=== PATIENT | female | born 1985 | race African-American/Black ===

== ENCOUNTER 2018-12-20 03:37 | Inpatient (IN) | payer MEDICAID ==
[~2018-12-20] VITALS: Ht 154.9 cm; Wt 65.8 kg
[2018-12-20] MEDS ORDERED: LIDOCAINE 2%HCL (LOCAL ANESTH.) INJ 20ML MDV ONE (03:54)
[2018-12-20] MEDS ORDERED: DERMOPLAST 60ML BOTTLE TOP ONE (03:54)
[2018-12-20] MEDS ORDERED: OXYTOCIN 10UNIT/ML 1ML VIAL ONE (03:54)
[2018-12-20] MEDS ORDERED: WITCH HAZEL-GLYCERIN PAD TOP ONE (03:55)
[2018-12-20] MEDS ORDERED: LACT. RINGERS/OXYTOCIN 20UNITS 1,000 ML IV ONE (03:55)
[2018-12-20] MEDS ORDERED: PHISODERM TOP SOLN 240ML BTL TOP ONE (03:55)
[2018-12-20] MEDS ORDERED: LACT. RINGERS/OXYTOCIN 20UNITS 1,000 ML IV SCH (03:56)
[2018-12-20] MEDS ORDERED: PHISODERM TOP SOLN 240ML BTL TOP PRN (04:00)
[2018-12-20] MEDS ORDERED: WITCH HAZEL-GLYCERIN PAD TOP PRN (04:00)
[2018-12-20] MEDS ORDERED: DERMOPLAST 60ML BOTTLE TOP PRN (04:00)
[2018-12-20] MEDS ORDERED: CARBOPROST TROMETHAMINE 250 MCG/1ML VIAL IM PRN (04:00)
[2018-12-20] MEDS ORDERED: METHYLERGONOVINE MALEATE 0.2 MG/ML AMP IM PRN (04:00)
[2018-12-20] MEDS ORDERED: LIDOCAINE 2%HCL (LOCAL ANESTH.) INJ 20ML MDV ID ONE (04:00)
[2018-12-20] MEDS ORDERED: PENICILLIN G POT 5MIL/D5 50ML 50 ML IV ONE (04:00)
[2018-12-20 05:00] LABS: Basophils # (auto) 0.1 uL; Eosinophils # (auto) 0.1 uL; Eosinophils % (auto) 0.3 % (0.0-7.0); Hemoglobin 10.1 g/dL (12.2-16.2); Lymphocytes # (auto) 1.9 uL; Red Cell Distribution Width 16.1 % (11.8-14.3)
[2018-12-20 05:02] LABS: Basophils % (auto) 0.4 % (0.0-2.0); Hematocrit 29.4 % (36.0-46.0); Lymphocytes % (auto) 11.7 % (10.0-50.0); Mean Corpuscular Hemoglobin 25.5 pg (28.0-32.0); Mean Corpuscular Hgb Conc. 34.3 g/dL (32.0-36.0); Mean Corpuscular Volume 74.4 fL (80.0-100.0); Monocytes # (auto) 0.7 uL; Monocytes % (auto) 4.6 % (0.0-12.0); Neutrophils # (auto) 13.3 uL; Platelet Count (auto) 219 10^3/uL (140-450); Red Blood Cells 3.95 10^6/uL (4.0-5.20)
[2018-12-20 05:19] LABS: INR < 0.93 (0.9-1.15); Partial Thromboplastin Time 27.9 sec (23.64-32.05)
[2018-12-20 05:24] LABS: Urine Bacteria MOD /hpf (None Seen); Urine Blood 3+ /uL (Negative); Urine Mucus FEW (None Seen); Urine Specific Gravity 1.019 (1.001-1.035); Urine WBC 108 /hpf (0 - 5); Urine WBC Clumps PRESENT /hpf (None Seen)
[2018-12-20 05:25] LABS: Alcohol, Urine < 3.0 mg/dL (0-5); Amphetamine Screen, Urine NEGATIVE (NEGATIVE); Barbiturate Scree,Urine NEGATIVE (NEGATIVE); Benzodiazephine Screen, Urine NEGATIVE (NEGATIVE); Cannabinoid Screen, Urine NEGATIVE (NEGATIVE); Cocaine Screen, Urine NEGATIVE (NEGATIVE); Opiate Scree,Urine NEGATIVE (NEGATIVE); Phencyclidine Screen, Urine NEGATIVE (NEGATIVE)
[2018-12-20 05:30] LABS: Potassium 3.9 mmol/L (3.5-5.1)
[2018-12-20 05:48] LABS: Albumin 2.2 g/dL (3.4-5.0); BUN/Creatinine Ratio 15.9; Bilirubin, Total 0.2 mg/dL (0.2-1.0); Total Protein 6.5 g/dL (6.4-8.2)
--- NOTE | 2018-12-20 06:45 | NUR ---
Teaching: Reviewed information in New Beginnings booklet with patient. Discussed benefits of and risks associated with not . Discussed different positions, proper latch, feeding cues, and baby-led . Provided information of medication side effects related to . All questions and concerns addressed at this time. Patient verbalized understanding of information.
[2018-12-20] MEDS ORDERED: PENICILLIN G POTASSIUM 2,500,000 UNITS in D5W 5% 50 ML IV SCH (08:00)
[2018-12-20] MEDS: IBUPROFEN 600 MG TAB PO PRN ×4 (08:14→23:14)
--- NOTE | 2018-12-20 08:15 | NUR ---
Call placed to line assembly utility worker Tammy awaiting call back
--- NOTE | 2018-12-20 08:25 | NUR ---
Ambulation: Patient OOB with standby assistance by RN. Patient ambulated to bathroom with steady gait. Patient able to void without difficulty 700 ml. [facility] teaching provided with returned demonstration by patient. Clean gown provided and bed linen changed. Patient ambulated back to bed with steady gait and no distress noted.
--- NOTE | 2018-12-20 08:53 | NUR ---
parks worker Tammy returned call Mother SBAR given including G 10 P7 38.3, MOB and FOB moving to [facility] address given, SS # Baby girls information. MOB does not have custody of any of the other 7 children. Per Tammy she will contact CPS and let us know if there will be a hold on baby.
--- NOTE | 2018-12-20 10:00 | NUR ---
Kayla director of casework services called unit. Stated she started a CPS case ( ) regarding patient not having custody of 7 other children. Patient stated 6 of the children are living with their father and one is in foster care. Kayla spoke with Lissa (CPS)/ case #[id number]. workers' compensation mediator stated Lissa will look into previous cases and get back to her.
--- NOTE | 2018-12-20 10:06 | NUR ---
D/C Planning Per SS consult for decreased care, does not have custody of 7 other children and is planning on moving to [place]. Spoke to EDMOND Cali and Ashley regarding Pt concerns. Contact CPS ph:( [phone]) spoke to Lissa. Per Lissa from CPS she will be having her labor supervisor review the case and did not say to put a hold on the baby unless further noticed. Case number provided from Lissa ([facility]) is [id number]. Informed EDMOND Esparza.
--- NOTE | 2018-12-20 10:13 | NUR ---
SBAR given to Santos Jackson RN.
--- NOTE | 2018-12-20 10:13 | NUR ---
Report received from Dayron Faye RN on stable pt. Assumed care.
--- NOTE | 2018-12-20 10:30 | NUR ---
Informed patient and FOB of CPS regarding history of patient not having custody of other 7 children. Verbalized understanding. All questions and concerns addressed.
[2018-12-20 11:00] VITALS: BP 128/60
--- NOTE | 2018-12-20 14:15 | NUR ---
Report given to Dayron Pendleton RN on stable pt. Relinquished care
[2018-12-20 15:00] VITALS: BP 115/53
[2018-12-20 19:00] VITALS: BP 114/70
[2018-12-20] MEDS: LACTATED RINGER'S 1,000 ML IV SCH (22:00)
[2018-12-20 23:23] VITALS: BP 122/76
--- NOTE | 2018-12-21 00:30 | NUR ---
Bottle-feeding Education: Patient encouraged to breastfeed. Benefits of and the risk of providing formula to was discussed. Patient verbalized understanding of the benefits and is aware of risk and insists on bottle-feeding. Formula provided and instruction on formula preperation from the New Beginning booklet reviewed with patient.
[2018-12-21 03:00] VITALS: BP 119/65
[2018-12-21] MEDS: LACTATED RINGER'S 1,000 ML IV SCH (06:00)
[2018-12-21 06:54] VITALS: BP 109/62
[2018-12-21] MEDS: IBUPROFEN 600 MG TAB PO PRN ×3 (07:14→18:06)
[2018-12-21 11:00] VITALS: BP 118/75
--- NOTE | 2018-12-21 13:30 | NUR ---
Report given to A Sinan RN who will assume patient care.
--- NOTE | 2018-12-21 13:30 | NUR ---
REPORT RECEIVED FROM Dayron WAN RN ON STABLE PATIENT, ASSUMING CARE.
[2018-12-21 15:00] VITALS: BP 118/54
[2018-12-21] MEDS ORDERED: PREN-96 PO (18:09)
[2018-12-21 19:15] VITALS: BP 119/71
--- NOTE | 2018-12-21 22:10 | NUR ---
IV discontinued to left forearm. Catheter intact and dressing applied.
[2018-12-21 23:00] VITALS: BP 125/67
[2018-12-22 03:00] VITALS: BP 124/76
[2018-12-22] MEDS: IBUPROFEN 600 MG TAB PO PRN (05:59)
[2018-12-22 06:06] LABS: Rubella Antibodies, IgG <0.90 index (Immune >0.99)
[2018-12-22 06:50] VITALS: BP 121/61
--- NOTE | 2018-12-22 06:53 | NUR ---
PT NOTIFIED THAT SHE IS RUBELLA NON-IMMUNE. PT GIVEN MMR VACCINATION EDUCATION SHEET AND PT DECLINED MMR VACCINE. WILL CONTINUE TO MONITOR.
--- NOTE | 2018-12-22 07:12 | NUR ---
DR. JIMENEZ AT PT BEDSIDE, STATUS UPDATE GIVEN, PT IS RUBELLA NON-IMMUNE, DECLINED MMR VACCINE, STILL PENDING RPR RESULTS. PER DR. JIMENEZ, NOTIFY WITH RESULTS. READ BACK AND VERIFIED ORDERS. WILL CARRY OUT.
[2018-12-22] MEDS ORDERED: OXYTOCIN 10UNIT/ML 1ML VIAL ONE (07:29)
[2018-12-22] MEDS ORDERED: METHYLERGONOVINE MALEATE 0.2 MG/ML AMP IM ONE (07:30)
[2018-12-22] MEDS ORDERED: LACT. RINGERS/OXYTOCIN 20UNITS 0 ML IV ONE (07:38)
[2018-12-22 11:10] VITALS: BP 105/58
--- NOTE | 2018-12-22 12:22 | NUR ---
[facility] CFS, they state they do not have an open case on her and no case # filed. Called and left msg for Custodial Services Manager.
--- NOTE | 2018-12-22 12:29 | NUR ---
Social Service, Aydee returned call. She spoke with Tammy, she will fax report form and call back with follow-up on report in a couple of hours.
--- NOTE | 2018-12-22 12:56 | NUR ---
JESSICA FROM CPS CALLED BACK AND STATED THERE IS NO HOLD ON , CLEARED BY CPS. WILL NOTIFY DR. BROCK.
--- NOTE | 2018-12-22 13:06 | NUR ---
CALLED [address] AT REGARDING PENDING RPR LAB, SPOKE WITH OLIVE. OLIVE STATED SHE WILL FAX OVER MOB AND INFANTS RPR RESULTS, AWAITING FAX.
--- NOTE | 2018-12-22 13:51 | NUR ---
CALLED LAB [facility] AGAIN AND SPOKE WITH OLIVE REGARDING NOT RECEIVED FAX RPR RESULTS. OLIVE STATED SHE IS FAXING IT AGAIN NOW.
--- NOTE | 2018-12-22 13:52 | NUR ---
RECEIVED FAX FOR RPR, PLACED IN PATIENTS CHART, WILL NOTIFY DR. JIMENEZ.
--- NOTE | 2018-12-22 14:00 | NUR ---
DR. JIMENEZ ON UNIT, NOTIFIED OF PTS REACTIVE RPR, RPR QUANTITATIVE 1:32. ORDERS RECEIVED FROM DR. JIMENEZ FOR PENICILLIN G BENZATHINE 2.4 MILLION UNITS IM QWEEKLY X3 WEEKS, FIRST DOSE TO TO GIVEN NOW. PER DR. JIMENEZ PT TO DISCHARGE HOME AFTER ANTIBIOTIC AND PT TO RETURN TO OB CLINIC WITH DR. KING ON 12/29/18 FOR FOLLOW UP APPOINTMENT AND SECOND DOSE OF PENICILLIN ANTIBIOTIC AND THEN ON 01/05/19 FOR THIRD DOSE OF PENICILLIN ANTIBIOTIC. READ BACK AND VERIFIED ORDERS. WILL CARRY OUT.
--- NOTE | 2018-12-22 14:05 | NUR ---
DR. JIMENEZ ALSO NOTIFIED OF ALL PATIENTS LABS FROM [facility].
--- NOTE | 2018-12-22 14:42 | NUR ---
INFORMED DR. KING THAT THE HIV ENVELOPE ARRIVES TO THE UNIT, DR. KING GRANTED PERMISSION TO OPEN CONFIDENTIAL ENVELOPE FOR RESULTS. DR. KING NOTIFIED PT IS HIV NEGATIVE. PER DR. KING RESUME WITH CURRENT PLAN OF CARE AND DISCHARGE PT HOME. READ BACK AND VERIFIED ORDERS. WILL CARRY OUT.
[2018-12-22 15:00] VITALS: BP 135/80
[2018-12-22] MEDS ORDERED: PENICILLIN G BENZ 1200000 UNITS/2 ML SYRG IM SCH (15:00)
--- NOTE | 2018-12-22 15:09 | NUR ---
NOTIFIED PT ABOUT REACTIVE RPR RESULTS AND DR. JIMENEZ ORDER FOR PENICILLIN ANTIBIOTIC TREATMENT. ALL PTS QUESTIONS AND CONCERNS ADDRESSED AT THIS TIME. PT VERBALIZES UNDERSTANDING AND AGREES TO ANTIBIOTIC TREATMENT AND TO FOLLOW THE TREATMENT REGIMENT. WILL CONTINUE TO MONITOR.
--- NOTE | 2018-12-22 17:00 | NUR ---
Discharge: Discharge instructions given as ordered. Pt encouraged to follow up with [facility] C[facility] TECHNICIAN as instructed. All questions and concerns addressed. Patient verbalized understanding. Medication reconciliation completed and copy given to patient. All required/requested vaccines given and copies of vaccinations given to patient. Patient encouraged to prepare to depart unit.
--- NOTE | 2018-12-22 18:37 | NUR ---
IV removal IV DC'd with clean sterile technique, catheter fully intact. Pressure dressing applied to site. Patient tolerated well. Addendum: 12/22/18 at 1853 by Odette Menon RN wrong patient, disregard note
--- NOTE | 2018-12-22 18:45 | NUR ---
Discharge: Pt given all discharge instructions and paperwork. No distress noted and no adverse changes in status since initial assessment. Pt staying in room 106 until [facility] team arrives to give patient baby band.
--- NOTE | 2018-12-22 20:00 | NUR ---
Patient leaves birthplace via ambulation with FOB and belongings in hand. No distress noted.
== END 2018-12-22 18:45 | disposition home or self-care (01) | DRG 560 ==
LOC: LDRP 03:37 → OBSVTOIN 03:37 → LDRP 04:33
PROVIDERS: ADMIT Specialist; ATTEND Specialist
PROC: 10E0XZZ Delivery of Products of Conception, External Approach (ICD-10-PCS; principal; 2018-12-20)
DX: O98.32 Other infections with a predominantly sexual mode of transmission complicating childbirth (principal); O77.0 Labor and delivery complicated by meconium in amniotic fluid; Z37.0 Single live birth; Z3A.38 38 weeks gestation of pregnancy
CPT/HCPCS: 36415; 59025; 59409; 80053; 80307; 81001; 84112; 85025; 85610; 85730; 86592; 86703; 86762; 86850; 86900; 86901; 87340; 96361; 96365; 96372; G0378; J0561; J2540; J2590; J7060

== ENCOUNTER 2018-12-29 11:05 | Emergency (ER) | payer MEDICAID ==
[~2018-12-29] VITALS: Ht 154.9 cm; Wt 62.1 kg
[~2018-12-29 11:05] MED LIST: PREN-96 PO
[2018-12-29 11:57] VITALS: BP 128/74
[2018-12-29] MEDS ORDERED: PENICILLIN G BENZ 1200000 UNITS/2 ML SYRG IM ONE (12:15)
== END 2018-12-29 12:44 | disposition home or self-care (01) ==
LOC: ER 11:05
DX: Z00.00 Encounter for general adult medical examination without abnormal findings (principal); Z79.899 Other long term (current) drug therapy
CPT/HCPCS: 96372; 99283; J0561

== ENCOUNTER 2019-01-05 10:21 | Emergency (ER) | payer MEDICAID ==
[~2019-01-05] VITALS: Ht 154.9 cm; Wt 63.5 kg
[2019-01-05 10:49] VITALS: BP 111/74
[2019-01-05] MEDS ORDERED: PENICILLIN G BENZ 1200000 UNITS/2 ML SYRG IM ONE (11:15)
== END 2019-01-05 11:31 | disposition home or self-care (01) ==
LOC: ER 10:21
DX: Z02.89 Encounter for other administrative examinations (principal)
CPT/HCPCS: 96372; 99283; J0561

== ENCOUNTER 2024-01-23 12:22 | Emergency (ER) | payer MEDICAID ==
[~2024-01-23] VITALS: Ht 154.9 cm; Wt 71.4 kg
[2024-01-23 13:12] VITALS: BP 120/83; PULSE 92; RESP 16; TEMP 98.3; O2SAT 100
[2024-01-23] MEDS ORDERED: CLIN1CAP70 PO (13:30)
[2024-01-23] MEDS ORDERED: IBUP-1456 PO (13:30)
== END 2024-01-23 13:34 | disposition home or self-care (01) ==
LOC: ER 12:22
DX: K04.7 Periapical abscess without sinus (principal); Z79.1 Long term (current) use of non-steroidal anti-inflammatories (NSAID)